=== PATIENT | male | born 1955 | race Caucasian/White ===

== ENCOUNTER → 2018-10-24 | Outpatient (CLI) | payer BC ==
[~2018-10-24] MED LIST: DOCUSATE SODIU100 MG PO; DOXAZOSIN MESYLA2 MG PO; IOPAMIDOL 370 MG/ML 200 ML INFUS..BTL INJ ONE; LOSARTAN POTASS25 MG PO; NORCO 10-325 T1 EACH PO; SINCALIDE 3 MCG/VIAL INJ ONE; SODIUM CHLORIDE 0.9% 50ML 50 ML ONE; TYLENOL WITH C1 EACH PO; [UNRECOGNIZED DRUG - REMARK] PO
[2018-10-24 09:29] LABS: BLOOD UREA NITROGEN 10 mg/dL (7-26); BUN/CREATININE RATIO 13 (6-25); CREATININE, SERUM 0.77 mg/dL (0.72-1.25); EST GLOMERULAR FILTRATION RATE > 60 ML/MIN (60-)
--- NOTE | 2018-10-24 10:28 | Diagnostic Imaging Report ---
PROCEDURE: CT ABDOMEN AND PELVIS WITH CONTRAST TECHNIQUE: The abdomen and pelvis were scanned utilizing a multidetector helical scanner from the diaphragm to the lesser trochanter after the IV administration of 100 cc of Isovue 370 and the oral administration of 900 cc of water. Coronal and sagittal multiplanar reformations were obtained. COMPARISON: None. INDICATIONS: MALIGNANT NEOPLASM OF PROSTATE FINDINGS: LOWER THORAX: Normal. HEPATOBILIARY: Subcentimeter hyperdense lesion in the right hepatic lobe on image 23. No biliary ductal dilatation. SPLEEN: No splenomegaly. Subcentimeter hyperdense lesion in the spleen on series 2, image 25. PANCREAS: No focal masses or ductal dilatation. ADRENALS: No adrenal nodules. KIDNEYS/URETERS: No hydronephrosis, stones, or solid mass lesions. PELVIC ORGANS/BLADDER: Enlarged heterogeneous prostate measuring up to 5 cm. PERITONEUM / RETROPERITONEUM: No free air or fluid. LYMPH NODES: No lymphadenopathy. VESSELS: Moderate atherosclerotic vascular calcifications. GI TRACT: No distention or wall thickening. BONES AND SOFT TISSUES: No suspicious bony lesions. IMPRESSION: No evidence of lymphadenopathy or suspicious bony lesion in the abdomen or pelvis. Hyperdense indeterminate subcentimeter splenic and hepatic lesions may represent benign etiologies such as hemangiomas, however an MRI may be considered for further evaluation. Prostatomegaly. Dictated by: ANIKET MCKENNA M.D. on 10/24/2018 at 10:38 Electronically approved by: ANIKET MCKENNA M.D. on 10/24/2018 at 10:38
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
== END ==
LOC: NM 08:14
PROVIDERS: ATTEND Urology
DX: C61 Malignant neoplasm of prostate (principal)
CPT/HCPCS: 36415; 74177; 78306; 82565; 84520; A9503; Q9967; J2805

== ENCOUNTER 2018-11-25 11:28 | Inpatient (IN) | payer BC ==
[~2018-11-25] VITALS: Ht 177.8 cm; Wt 65.0 kg
[2018-11-25] MEDS ORDERED: CEFAZOLIN SOD 1 GM/NS 50ML 50 ML IV ONE (11:51)
[2018-11-25 12:24] LABS: BASOPHILS # (AUTO) 0.1 (0.0-0.1); BASOPHILS % 0.8 % (0.0-1.0); EOSINOPHILS # (AUTO) 0.2 (0.0-0.4); EOSINOPHILS % 1.7 % (0.0-6.0); HEMATOCRIT 41.8 % (38.2-49.6); LYMPHOCYTES # (AUTO) 2.1 (1.0-3.2); LYMPHOCYTES % 23.1 % (18.0-39.1); MEAN CORPUSCULAR HEMOGLOBIN 30.9 pg (28-32); MEAN CORPUSCULAR HGB CONC 33.5 g/dL (31-35); MEAN CORPUSCULAR VOLUME 92.3 fL (81-99); MONOCYTES # (AUTO) 0.6 (0.2-0.8); MONOCYTES % 6.1 % (4.4-11.3); NEUTROPHILS # (AUTO) 6.2 (2.1-6.9); PLATELET COUNT 288 x10e3/uL (140-360); RED BLOOD COUNT 4.53 x10e6/uL (4.3-5.7); RED CELL DISTRIBUTION WIDTH 12.9 % (11.7-14.4)
[2018-11-25] MEDS ORDERED: LOSARTAN POTASS25 MG PO (12:24)
[2018-11-25] MEDS ORDERED: DOXAZOSIN MESYLA2 MG PO (12:24)
[2018-11-25] MEDS ORDERED: [UNRECOGNIZED DRUG - REMARK] PO (12:24)
[2018-11-25] MEDS ORDERED: NORCO 10-325 T1 EACH PO (12:24)
[2018-11-25 12:39] LABS: ALANINE AMINOTRANSFERASE 14 IU/L (0-55); ALBUMIN/GLOBULIN RATIO 1.3 (0.8-2.0); ALKALINE PHOSPHATASE 48 IU/L (40-150); ANION GAP 12.9 mmol/L (8-16); BLOOD UREA NITROGEN 14 mg/dL (7-26); BUN/CREATININE RATIO 20 (6-25); CARBON DIOXIDE 24 mmol/L (22-29); CHLORIDE 108 mmol/L (98-107); CREATININE, SERUM 0.71 mg/dL (0.72-1.25); EST GLOMERULAR FILTRATION RATE > 60 ML/MIN (60-); GLUCOSE 97 mg/dL (74-118); POTASSIUM 3.9 mmol/L (3.5-5.1); SODIUM 141 mmol/L (136-145)
[2018-11-25] MEDS ORDERED: MEPERIDINE HCL INJ 25 MG/ML VIAL ONE (15:46)
[2018-11-25] MEDS ORDERED: HYDROMORPHONE 2MG/ML 2 MG/ML ML ONE (15:54)
[2018-11-25] MEDS ORDERED: ONDANSETRON HCL INJ 2MG/ML 2ML 2 MG/ML VIAL IV PRN (16:15)
[2018-11-25] MEDS ORDERED: DIPHENHYDRAMINE HCL INJ 50 MG/ML VIAL IM PRN (16:15)
[2018-11-25] MEDS ORDERED: NALOXONE HCL INJ 0.4 MG/ML AMP IV PRN (16:15)
[2018-11-25] MEDS ORDERED: ACETAMINOPHEN 1000 MG/100 ML IV PRN (16:15)
[2018-11-25] MEDS ORDERED: HYDRALAZINE HCL 20 MG/ML VIAL ONE (16:20)
[2018-11-25] MEDS: MORPHINE SULFATE 1 MG/ML 30ML PCA IV PRN ×2 (16:30→22:55)
[2018-11-25] MEDS ORDERED: MORPHINE SULFATE INJ 4 MG/ML INJ 1ML ONE (16:31)
--- NOTE | 2018-11-25 17:45 | NUR ---
ARRIVED VIA STRETCHER, TRANSFERRED TO BED WITH ASSIST, AA&OX3, 2L NC, WHEEL GRINDER VERIFIED WITH PACU NURSE, ABD DRESSING CDI, MEJIA INTACT, SCANT BLOOD TINGE DRAINAGE NOTED, ABD PAIN 8/, PT STATES "BETTER NOW", CONRAD TO BSD WITH CLEAR YELLOW URINE NOTED, BILAT SCD'S IN PLACE, ORIENTED TO ROOM AND CALL LIGHT SYSTEM, FAMILY AT SIDE
[2018-11-25] MEDS ORDERED: PROPOFOL IV EMULSION 10 MG/ML 20 ML VIAL ONE (18:00)
[2018-11-25] MEDS ORDERED: SEVOFLURANE INHAL SOLN 250 ML PEN BTL ONE (18:00)
[2018-11-25] MEDS ORDERED: ROCURONIUM BROMIDE 10 MG/ML 5ML VIAL ONE (18:00)
[2018-11-25] MEDS ORDERED: KETOROLAC TROMETHAMINE 30 MG/ML VIAL ONE (18:00)
[2018-11-25] MEDS ORDERED: ACETAMINOPHEN 1000 MG/100 ML IV ONE (18:00)
[2018-11-25] MEDS ORDERED: DEXAMETHASONE SOD PHOS INJ 4 MG/ML VIAL ONE (18:00)
[2018-11-25] MEDS ORDERED: GLYCOPYRROLATE INJ 1MG/ 5 ML SYR ONE (18:00)
[2018-11-25] MEDS ORDERED: ONDANSETRON HCL INJ 2MG/ML 2ML 2 MG/ML VIAL ONE (18:00)
[2018-11-25] MEDS ORDERED: NEOSTIGMINE 5 MG/5ML SYR ONE (18:00)
[2018-11-25] MEDS ORDERED: CEFAZOLIN SOD 1 GM VIAL ONE (18:00)
[2018-11-25] MEDS ORDERED: FENTANYL CITRATE/PF 100MCG/2 ML INJ ONE (18:08)
[2018-11-25] MEDS ORDERED: KETAMINE HCL INJ 50 MG/ML 10 ML VIAL ONE (18:08)
[2018-11-25] MEDS ORDERED: MIDAZOLAM HCL 2 MG/2 ML VIAL ONE (18:08)
[2018-11-25 18:22] VITALS: BP 155/68
[2018-11-25 18:25] VITALS: BP 155/68
[2018-11-25] MEDS: D5.45%NS/KCL 20MEQ 1,000 ML IV SCH (18:40)
--- NOTE | 2018-11-25 19:10 | NUR ---
NO CHANGE IN CONDITION, CALL LIGHT WITHIN REACH
[2018-11-25 20:00] VITALS: BP 151/65
--- NOTE | 2018-11-25 20:00 | NUR ---
PT RECEIVED. PT ASSESSED. NO SS OF DISTRESS NOTED. PT CO MID ABD PAIN. DISCUSSED PAIN MNGT POC. VERBALIZED UNDERSTANDING. EXECUTIVE CANDIDATE DEVELOPER BUTTON IN REACH. MID ABD DRSG CDI. 1X MEJIA DRAIN NOTED TO ABD. CONRAD DRAINING TO GRAVITY. AIR BASSAM APPLIED AT TIME. WILL CONT TO FOLLOW POC. CALL AMADO WITHIN REACH.
[2018-11-25 21:00] VITALS: BP 151/65
[2018-11-25] MEDS ORDERED: SODIUM CHLORIDE 0.9% 250ML 250 ML ONE (21:44)
[2018-11-25 22:00] VITALS: BP 135/60
[2018-11-25] MEDS: CEFAZOLIN SOD 1 GM/NS 50ML 50 ML IV SCH (22:05)
[2018-11-25 23:00] VITALS: BP 125/58
[2018-11-26] VITALS (12 sets, daily range): BP systolic 111–166; BP diastolic 55–79
[2018-11-26] MEDS: D5.45%NS/KCL 20MEQ 1,000 ML IV SCH ×3 (01:17→14:00)
--- NOTE | 2018-11-26 04:20 | NUR ---
no distress noted. call murcia within reach.
[2018-11-26] MEDS: CEFAZOLIN SOD 1 GM/NS 50ML 50 ML IV SCH ×3 (05:27→21:32)
[2018-11-26 05:59] LABS: BASOPHILS % 0.2 % (0.0-1.0); EOSINOPHILS % 0.1 % (0.0-6.0); HEMATOCRIT 36.2 % (38.2-49.6); HEMOGLOBIN 12.1 g/dL (14.0-18.0); LYMPHOCYTES # (AUTO) 2.3 (1.0-3.2); LYMPHOCYTES % 17.7 % (18.0-39.1); MEAN CORPUSCULAR HGB CONC 33.4 g/dL (31-35); MEAN CORPUSCULAR VOLUME 92.8 fL (81-99); NEUTROPHILS # (AUTO) 9.4 (2.1-6.9); NEUTROPHILS % 73.7 % (38.7-80.0); PLATELET COUNT 243 x10e3/uL (140-360); RED CELL DISTRIBUTION WIDTH 13.1 % (11.7-14.4)
[2018-11-26 06:20] LABS: ANION GAP 11.2 mmol/L (8-16); BLOOD UREA NITROGEN 12 mg/dL (7-26); BUN/CREATININE RATIO 18 (6-25); CALCIUM 8.3 mg/dL (8.4-10.2); CARBON DIOXIDE 24 mmol/L (22-29); CHLORIDE 108 mmol/L (98-107); CREATININE, SERUM 0.68 mg/dL (0.72-1.25); EST GLOMERULAR FILTRATION RATE > 60 ML/MIN (60-); GLUCOSE 131 mg/dL (74-118); POTASSIUM 4.2 mmol/L (3.5-5.1); SODIUM 139 mmol/L (136-145)
[2018-11-26] MEDS: MORPHINE SULFATE 1 MG/ML 30ML PCA IV PRN (06:25)
--- NOTE | 2018-11-26 08:40 | NUR ---
HOB ELEVATED, EDUCATED TO USE PILLOW TO SPLINT ABDOMEN WITH COUGHING, PT VERBALIZED UNDERSTANDING, ABD PAIN 07/05, LIVER TRIMMER IN USE, PT AWARE OF NPO STATUS, CALL LIGHT WITHIN REACH
[2018-11-26] MEDS ORDERED: BISACODYL 10 MG SUPP PR PRN (09:45)
[2018-11-26] MEDS: CELECOXIB 200 MG CAP PO SCH ×2 (09:45→16:51)
[2018-11-26] MEDS ORDERED: SENNOSIDES 8.6 MG TAB PO SCH (09:45)
[2018-11-26] MEDS ORDERED: MAGNESIUM HYDROXIDE 30 ML UDC PO PRN (09:45)
[2018-11-26] MEDS ORDERED: LOSARTAN POTASSIUM 100 MG TAB PO SCH (10:00)
--- NOTE | 2018-11-26 12:47 | NUR ---
SPOKE WITH DR Lainey AMEZCUA, ORDERS NOTED TO GET OUT OF BED, WITH STANDBY ASSIST, PT SAT ON SIDE OF BED, STOOD AND NOW SITTING ON SIDE OF BED, CALL LIGHT WITHIN REACH
--- NOTE | 2018-11-26 13:15 | NUR ---
SITTING IN BEDSIDE CHAIR, CALL LIGHT WITHIN REACH
--- NOTE | 2018-11-26 13:59 | NUR ---
MD Lainey AMEZCUA INTO SEE PT, DISCUSSED POC Addendum: 11/26/18 at 1406 by Mita Lloyd RN MD Lainey AMEZCUA AWARE THAT PT HAS NOT PASSED FLATUS YET BUT BOWEL SOUNDS ARE PRESENT
[2018-11-26] MEDS: MORPHINE SULFATE INJ 4 MG/ML INJ 1ML IV PRN ×3 (14:35→22:23)
[2018-11-26] MEDS: ONDANSETRON HCL INJ 2MG/ML 2ML 2 MG/ML VIAL IV PRN (14:35)
--- NOTE | 2018-11-26 16:17 | NUR ---
CLEAR YELLOW URINE NOTED IN CONRAD, 700ML DRAINED, PAULINE INTACT, MEJIA DRESSING CDI, CALL LIGHT WITHIN REACH
--- NOTE | 2018-11-26 16:52 | NUR ---
PT TOLERATING ICE CHIPS AT THIS TIME, AND SIPS OF WATER
--- NOTE | 2018-11-26 19:03 | NUR ---
received patient resting in bed, aaox3, no distress observed. recently medicated for pain. no needs at this time. encouraged to call for assistance as needed, verbalized understanding. bed locked and in lowest position, call light within easy reach.
--- NOTE | 2018-11-26 20:31 | Operative Report ---
DATE OF PROCEDURE: November 25, 2018 PREOPERATIVE DIAGNOSIS: Aggressive prostate cancer. POSTOPERATIVE DIAGNOSIS: Aggressive prostate cancer. OPERATION PERFORMED: Bilateral pelvic lymphadenectomy. ENERGY SYSTEMS ENGINEER: Natty Merchant MD COMPLICATIONS: None. CLINICAL SUMMARY: Gino Jett is a 63-year-old man who presented with an elevated PSA above 20 and underwent evaluation including prostate biopsies and had [place] grade 8 and 9 biopsies throughout his prostate. He had metastatic workup including bone scan and CAT scan and chest x-ray, which were negative for metastatic disease. Patient is brought to the operating room for staging help with lymphadenectomy. Should this lymphadenectomy prove negative for metastatic disease, he will be referred for radiotherapy. The patient has already received LHRH agonist in the recent past. He is aware of the risks of bleeding, infection, and injury to adjacent structures. He understands this is not a curative procedure, but merely a diagnostic procedure and he elected to proceed. OPERATIVE PROCEDURE IN DETAIL: Informed consent was verified. Gino jett was properly identified, taken to the operating room, placed on the operating table in supine position. Anesthesia was uneventfully begun. The patient's abdomen and genitalia were shaved, prepared and draped in usual sterile fashion. A Lopez catheter was placed followed by midline incision. This incision was carried through all layers of the abdominal wall. An extraperitoneal approach was utilized. We utilized a Antunez-Lily self-retaining retractor. We performed bilateral pelvic lymphadenectomies. Margins of resection included the external iliac vein as the anterolateral margin, the obturator fossa as the posteromedial margin, Kev's ligament as the distal margin, and the bifurcation of the iliac as the proximal margin. Hemoclips were utilized to control lymphatic channels and blood vessels. Obturator nerves were left intact and uninjured. This procedure was performed first on the right hand side and then on the left hand side. Excellent hemostasis was achieved. A Aaron drain was then placed through a separate stab incision, secured to the skin with a nylon suture. Patient's incision was approximated in multiple layers utilizing absorbable suture. The rectus muscles were approximated followed by fascia. Closure was done with interrupted heavy Vicryl sutures in [id number] fashion. Skin was approximated with skin eligio. Sterile dressings were applied. Copious irrigation with sterile water was performed at each layer of closure. There were no complications during the procedure. Patient tolerated the procedure well. Sponge, needle, and instrument counts were quoted as correct x2 at the end of the case. Estimated blood loss was minimal. Proceed with routine postoperative care and eagerly wait the histopathology results. Job#: [id number] CARMEN
[2018-11-26] MEDS: SENNOSIDES 8.6 MG TAB PO SCH (21:32)
[2018-11-27] VITALS (8 sets, daily range): BP systolic 136–179; BP diastolic 62–84
[2018-11-27] MEDS: D5.45%NS/KCL 20MEQ 1,000 ML IV SCH (00:58)
[2018-11-27] MEDS: CEFAZOLIN SOD 1 GM/NS 50ML 50 ML IV SCH ×3 (05:48→21:40)
[2018-11-27 05:52] LABS: BASOPHILS # (AUTO) 0.1 (0.0-0.1); BASOPHILS % 0.7 % (0.0-1.0); EOSINOPHILS # (AUTO) 0.1 (0.0-0.4); EOSINOPHILS % 0.7 % (0.0-6.0); HEMATOCRIT 41.4 % (38.2-49.6); HEMOGLOBIN 13.7 g/dL (14.0-18.0); LYMPHOCYTES # (AUTO) 1.6 (1.0-3.2); LYMPHOCYTES % 13.6 % (18.0-39.1); MEAN CORPUSCULAR HEMOGLOBIN 30.6 pg (28-32); MEAN CORPUSCULAR HGB CONC 33.1 g/dL (31-35); MEAN CORPUSCULAR VOLUME 92.4 fL (81-99); MONOCYTES # (AUTO) 1.2 (0.2-0.8); MONOCYTES % 9.7 % (4.4-11.3); NEUTROPHILS % 74.9 % (38.7-80.0); PLATELET COUNT 284 x10e3/uL (140-360); RED BLOOD COUNT 4.48 x10e6/uL (4.3-5.7); RED CELL DISTRIBUTION WIDTH 12.6 % (11.7-14.4)
[2018-11-27 06:09] LABS: ANION GAP 13.6 mmol/L (8-16); BLOOD UREA NITROGEN 7 mg/dL (7-26); BUN/CREATININE RATIO 10 (6-25); CALCIUM 9.4 mg/dL (8.4-10.2); CARBON DIOXIDE 25 mmol/L (22-29); CHLORIDE 104 mmol/L (98-107); CREATININE, SERUM 0.72 mg/dL (0.72-1.25); EST GLOMERULAR FILTRATION RATE > 60 ML/MIN (60-); GLUCOSE 124 mg/dL (74-118); POTASSIUM 3.6 mmol/L (3.5-5.1); SODIUM 139 mmol/L (136-145)
[2018-11-27] MEDS: MORPHINE SULFATE INJ 4 MG/ML INJ 1ML IV PRN ×4 (06:09→21:40)
--- NOTE | 2018-11-27 06:09 | NUR ---
neri removed at 0605, tip intact. patient tolerated well. dtv.
--- NOTE | 2018-11-27 06:55 | NUR ---
patient voided 300ml post neri cath removal
--- NOTE | 2018-11-27 07:25 | NUR ---
Rcvd patient in report this am. Patient is asleep in bed at this time. No s/s of distress noted
[2018-11-27] MEDS: LOSARTAN POTASSIUM 25 MG TAB PO SCH (08:46)
[2018-11-27] MEDS: HYDROCODONE/APAP 10MG-325MG TAB PO PRN ×2 (08:46→13:29)
[2018-11-27] MEDS: SENNOSIDES 8.6 MG TAB PO SCH ×2 (08:46→21:40)
[2018-11-27] MEDS: CELECOXIB 200 MG CAP PO SCH ×2 (08:46→17:20)
[2018-11-27] MEDS ORDERED: LOSARTAN POTASSIUM 100 MG TAB PO SCH (09:00)
[2018-11-27] MEDS ORDERED: LOSARTAN POTASSIUM 25 MG TAB PO SCH (09:00)
[2018-11-27] MEDS: ONDANSETRON HCL INJ 2MG/ML 2ML 2 MG/ML VIAL IV PRN (09:12)
--- NOTE | 2018-11-27 09:45 | NUR ---
Patient is AAOx3. Patient is post op pelvic lymphadenectomy. Medial abdominal incision clean, dry, and intact. MEJIA drain in place with bloody drainage. Lung lares auscultated and wheezing and crackles noted. Patient encouraged to use incentive spirometer. No cough noted. Bowel sounds present x4 and active. Patient is passing gas at this time. Patient c/o general pain all over. Patient encouraged to ambulate and get up for meals. Patient vernalized understanding
[2018-11-27 15:17] LABS: BASOPHILS # (AUTO) 0.1 (0.0-0.1); BASOPHILS % 0.6 % (0.0-1.0); EOSINOPHILS # (AUTO) 0.1 (0.0-0.4); EOSINOPHILS % 0.7 % (0.0-6.0); HEMATOCRIT 37.8 % (38.2-49.6); HEMOGLOBIN 12.5 g/dL (14.0-18.0); LYMPHOCYTES # (AUTO) 2.5 (1.0-3.2); LYMPHOCYTES % 25.9 % (18.0-39.1); MEAN CORPUSCULAR HEMOGLOBIN 30.4 pg (28-32); MEAN CORPUSCULAR HGB CONC 33.1 g/dL (31-35); MONOCYTES % 10.4 % (4.4-11.3); NEUTROPHILS # (AUTO) 6.1 (2.1-6.9); NEUTROPHILS % 62.1 % (38.7-80.0); PLATELET COUNT 248 x10e3/uL (140-360); RED BLOOD COUNT 4.11 x10e6/uL (4.3-5.7); RED CELL DISTRIBUTION WIDTH 12.5 % (11.7-14.4)
[2018-11-27 15:32] LABS: ANION GAP 13.3 mmol/L (8-16); BLOOD UREA NITROGEN 7 mg/dL (7-26); BUN/CREATININE RATIO 10 (6-25); CALCIUM 9.2 mg/dL (8.4-10.2); CARBON DIOXIDE 28 mmol/L (22-29); CHLORIDE 104 mmol/L (98-107); CREATININE, SERUM 0.69 mg/dL (0.72-1.25); EST GLOMERULAR FILTRATION RATE > 60 ML/MIN (60-); GLUCOSE 91 mg/dL (74-118); POTASSIUM 4.3 mmol/L (3.5-5.1); SODIUM 141 mmol/L (136-145)
[2018-11-28 00:01] VITALS: BP 133/69
[2018-11-28 04:00] VITALS: BP 143/78
[2018-11-28] MEDS: CEFAZOLIN SOD 1 GM/NS 50ML 50 ML IV SCH (05:55)
[2018-11-28] MEDS: D5.45%NS/KCL 20MEQ 1,000 ML IV SCH (06:00)
[2018-11-28 06:13] LABS: BASOPHILS # (AUTO) 0.1 (0.0-0.1); BASOPHILS % 0.8 % (0.0-1.0); EOSINOPHILS # (AUTO) 0.2 (0.0-0.4); EOSINOPHILS % 2.5 % (0.0-6.0); HEMATOCRIT 37.2 % (38.2-49.6); HEMOGLOBIN 12.6 g/dL (14.0-18.0); LYMPHOCYTES # (AUTO) 2.3 (1.0-3.2); LYMPHOCYTES % 26.2 % (18.0-39.1); MEAN CORPUSCULAR HGB CONC 33.9 g/dL (31-35); MEAN CORPUSCULAR VOLUME 91.4 fL (81-99); MONOCYTES # (AUTO) 0.9 (0.2-0.8); MONOCYTES % 10.6 % (4.4-11.3); NEUTROPHILS # (AUTO) 5.2 (2.1-6.9); NEUTROPHILS % 59.6 % (38.7-80.0); PLATELET COUNT 263 x10e3/uL (140-360); RED BLOOD COUNT 4.07 x10e6/uL (4.3-5.7); RED CELL DISTRIBUTION WIDTH 12.4 % (11.7-14.4)
[2018-11-28 06:29] LABS: BLOOD UREA NITROGEN 10 mg/dL (7-26); BUN/CREATININE RATIO 15 (6-25); CALCIUM 9.1 mg/dL (8.4-10.2); CARBON DIOXIDE 26 mmol/L (22-29); CHLORIDE 103 mmol/L (98-107); CREATININE, SERUM 0.68 mg/dL (0.72-1.25); EST GLOMERULAR FILTRATION RATE > 60 ML/MIN (60-); GLUCOSE 96 mg/dL (74-118); SODIUM 137 mmol/L (136-145)
[2018-11-28] MEDS: HYDROCODONE/APAP 10MG-325MG TAB PO PRN (06:44)
[2018-11-28 08:16] VITALS: BP 144/64
[2018-11-28 08:25] VITALS: BP 144/74
[2018-11-28] MEDS: ONDANSETRON HCL INJ 2MG/ML 2ML 2 MG/ML VIAL IV PRN (08:25)
[2018-11-28] MEDS: MORPHINE SULFATE INJ 4 MG/ML INJ 1ML IV PRN (08:25)
[2018-11-28] MEDS: CELECOXIB 200 MG CAP PO SCH (08:25)
[2018-11-28] MEDS: SENNOSIDES 8.6 MG TAB PO SCH (08:25)
--- NOTE | 2018-11-28 08:25 | NUR ---
Patient received sitting up in bed, AAOx3. Patient is pod 3, pelvic lymphadenectomy. Medial abdominal incision clean, dry, and intact with eligio. left MEJIA drain in place with scant bloody drainage. Patient encouraged to use incentive spirometer. No cough noted. Patient is passing gas, no bm. Patient encouraged to increase ambulation and oob for meals. Patient vernalized understanding
[2018-11-28] MEDS: LOSARTAN POTASSIUM 25 MG TAB PO SCH (08:30)
--- NOTE | 2018-11-28 10:20 | NUR ---
MEJIA DRAIN REMOVED WITH TIP INTACT, PT TOLERATED WELL
[2018-11-28] MEDS ORDERED: TYLENOL WITH C1 EACH PO (10:29)
[2018-11-28] MEDS ORDERED: DOCUSATE SODIU100 MG PO (10:29)
--- NOTE | 2018-11-28 11:12 | NUR ---
DISCHARGE INSTRUCTIONS REVIEWED WITH PATIENT, ALL QUESTIONS ANSWERED. DISCUSSED FOLLOW UP APPT, GIVEN RX WITH EDUCATION. #20IV TO LFA AND RH REMOVED WITH TIP INTACT, PRESSURE DRESSING APPLIED. GIVEN STAPLE REMOVAL KIT.
--- NOTE | 2018-11-28 11:59 | NUR ---
pt left floor via w/c
== END 2018-11-28 11:59 | disposition home or self-care (01) | DRG 708 ==
LOC: OR 11:28 → MED/SURG 16:31
PROVIDERS: ADMIT Internal Medicine; ATTEND Internal Medicine
PROC: 07TC0ZZ Resection of Pelvis Lymphatic, Open Approach (ICD-10-PCS; principal; 2018-11-26)
DX: C61 Malignant neoplasm of prostate (principal); N40.1 Benign prostatic hyperplasia with lower urinary tract symptoms; R33.8 Other retention of urine; I10 Essential (primary) hypertension; Z86.19 Personal history of other infectious and parasitic diseases; G89.29 Other chronic pain
CPT/HCPCS: 36415; 80048; 80053; 82948; 83735; 85025; 86850; 86900; 88307; 88342; 93005; 96367; 96374; J0360; J0690; J1100; J1885; J2175; J2250; J2270; J2310; J2405; J7050

== ENCOUNTER 2020-09-27 12:54 | Emergency (ER) | payer BC ==
[~2020-09-27] VITALS: Ht 177.8 cm; Wt 78.9 kg
[~2020-09-27 12:54] MED LIST changes: -IOPAMIDOL 370 MG/ML 200 ML INFUS..BTL INJ ONE; -SINCALIDE 3 MCG/VIAL INJ ONE; -SODIUM CHLORIDE 0.9% 50ML 50 ML ONE
[2020-09-27] MEDS ORDERED: ASPIRIN 81 MG CHEW TAB PO ONE (13:30)
[2020-09-27 14:05] LABS: BASOPHILS # (AUTO) 0.1 (0.0-0.1); BASOPHILS % 0.8 % (0.0-1.0); EOSINOPHILS # (AUTO) 0.2 (0.0-0.4); EOSINOPHILS % 2.3 % (0.0-6.0); HEMATOCRIT 39.6 % (38.2-49.6); HEMOGLOBIN 12.9 g/dL (14.0-18.0); LYMPHOCYTES # (AUTO) 2.3 (1.0-3.2); MEAN CORPUSCULAR HGB CONC 32.6 g/dL (31-35); MEAN CORPUSCULAR VOLUME 92.1 fL (81-99); MONOCYTES # (AUTO) 0.6 (0.2-0.8); MONOCYTES % 6.8 % (4.4-11.3); NEUTROPHILS # (AUTO) 5.3 (2.1-6.9); NEUTROPHILS % 62.9 % (38.7-80.0); PLATELET COUNT 277 x10e3/uL (140-360)
[2020-09-27 14:28] LABS: ALANINE AMINOTRANSFERASE 12 IU/L (0-55); ALBUMIN 4.1 g/dL (3.5-5.0); ALBUMIN/GLOBULIN RATIO 1.6 (0.8-2.0); ALKALINE PHOSPHATASE 55 IU/L (40-150); ANION GAP 13.2 mmol/L (8-16); BLOOD UREA NITROGEN 20 mg/dL (7-26); BUN/CREATININE RATIO 28 (6-25); CARBON DIOXIDE 25 mmol/L (22-29); CHLORIDE 105 mmol/L (98-107); CREATINE KINASE 107 IU/L (30-200); CREATININE, SERUM 0.71 mg/dL (0.72-1.25); EST GLOMERULAR FILTRATION RATE > 60 ML/MIN (60-); GLUCOSE 96 mg/dL (74-118); POTASSIUM 4.2 mmol/L (3.5-5.1); SODIUM 139 mmol/L (136-145)
== END 2020-09-27 15:54 | disposition home or self-care (01) ==
LOC: ER 13:33
DX: R07.89 Other chest pain (principal); I10 Essential (primary) hypertension; B19.20 Unspecified viral hepatitis C without hepatic coma; B15.9 Hepatitis A without hepatic coma; M54.9 Dorsalgia, unspecified; G89.29 Other chronic pain; Z85.46 Personal history of malignant neoplasm of prostate
CPT/HCPCS: 36415; 71045; 80053; 82550; 82553; 84484; 85025; 93005; 99284